=== PATIENT | female | born 1995 | race Hispanic/Latino ===

== ENCOUNTER 2017-12-11 07:53 | Emergency (ER) | payer OTHER, SELFPAY ==
--- NOTE | 2017-12-11 10:11 | RAD REPORT ---
EXAM DESCRIPTION: US - BREAST/AXILLA, LIMITED - 12/11/2017 8:48 am CLINICAL HISTORY: Pain, left nipple. COMPARISON: None. FINDINGS: Retroareolar mass is present measuring 2.1 x 1.3 cm. The mass is relatively well marginate d and largely hypoechoic. In this age group, benign etiology such as fibroadenoma is favored. However , six-month follow-up left breast sonography is recommended for continued surveillance. IMPRESSION: Solid 2.1 x 1.3 cm mass retroareolar left breast. Findings favor a benign etiology such as fibroadenoma in this age group. However, six-month follow-up left breast sonography is recommended for continued monitoring. BI-RAD: 3, probably benign. ResultCode: PB6 Category Diagnosis 0 = Incomplete: Needs Additional Imaging Evaluation, 1 = Negative, 2 = Benign, 3 = Probably Benign, 4 = Suspicious Abnormality, 5 = Highly Suspicious of Malignancy, 6 = Known Biop sy Proven Malignancy.
--- NOTE | 2017-12-11 10:21 | ER ---
Nurse's Notes [facility] Name: Koki Vargas Age: 22 yrs Sex: Female : 1995 Arrival Date: 12/11/2017 Time: 07:56 Bed 14 Private MD: None, None Diagnosis: Fibroadenosis of left breast Presentation: 12/11 08:10 Presenting complaint: Patient states: has had pain in left nipple since Mother's Day, iw over the weekend she noticed a lump in the same area and feels like a twisting, shocking sensation, feels like lump has gotten bigger, denies redness or discharge. Transition of care: patient was not received from another setting of care. Onset of symptoms was October 2017. Risk Assessment: Do you want to hurt yourself or someone else? Patient reports no desire to harm self or others. Initial Sepsis Screen: Does the patient meet any 2 criteria? No. Patient's initial sepsis screen is negative. Does the patient have a suspected source of infection? No. Patient's initial sepsis screen is negative. Care prior to arrival: None. 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 - Social history:: Smoking status: Patient/guardian denies using tobacco. - Ebola Screening: : Patient negative for fever greater than or equal to 101.5 degrees Fahrenheit, and additional compatible Ebola Virus Disease symptoms Patient denies exposure to infectious person Patient denies travel to an Ebola-affected area in the 21 days before illness onset No symptoms or risks identified at this time. - Family history:: not pertinent. - Hospitalizations: : No recent hospitalization is reported. Screenin:17 Abuse screen: Denies threats or abuse. Denies injuries from another. Nutritional iw screening: No deficits noted. Tuberculosis screening: No symptoms or risk factors identified. Fall Risk None identified. Assessment: 08:16 General: Appears in no apparent distress. Behavior is calm, cooperative. Pain: iw Complains of pain in left nipple Pain currently is 0 out of 10 on a pain scale. at worst was 4 out of 10 on a pain scale. Neuro: Level of Consciousness is awake, alert, obeys commands, Oriented to person, place, time, situation, Moves all extremities. Full function. Cardiovascular: Patient's skin is warm and dry. Respiratory: Respiratory effort is even, unlabored, Respiratory pattern is regular, symmetrical. GI: No signs and/or symptoms were reported involving the gastrointestinal system. Derm: Skin is pink, warm \T\ dry. normal. Musculoskeletal: Range of motion: intact in all extremities. 09:15 Reassessment: No changes from previously documented assessment. Patient and/or family jl7 updated on plan of care and expected duration. Pain level reassessed. Patient is alert, oriented x 3, equal unlabored respirations, skin warm/dry/pink. 10:15 Reassessment: Patient and/or family updated on plan of care and expected duration. Pain jl7 level reassessed. Patient is alert, oriented x 3, equal unlabored respirations, skin warm/dry/pink. Vital Signs: 08:13 BP 132 / 96; Pulse 70; Resp 16 S; Temp 98.2; Pulse Ox 100% on R/A; Weight 70.31 kg; iw Height 5 ft. 7 in. (170.18 cm); Pain 0/10; 10:15 BP 130 / 94; Pulse 71; Resp 16; Pulse Ox 100% ; jl7 08:13 Body Mass Index 24.28 (70.31 kg, 170.18 cm) ED Course: 07:56 Patient arrived in ED. mr 07:57 None, None is Private Physician. mr 08:13 Triage completed. iw 08:13 Arm band placed on. iw 08:15 Jessica Granda FNP is PHCP. kav 08:15 Jovi Mckinnon MD is Attending Physician. kav 08:30 Patient has correct armband on for positive identification. Bed in low position. Call jl7 light in reach. Side rails up X 1. 08:33 Jyothi Zamarripa, WILBER is Primary Nurse. jl7 08:35 Ultrasound completed. Other: AT BEDSIDE/PORTABLE. aa4 08:35 BREAST/AXILLA, LIMITED In Process Unspecified. EDMS 10:18 Jayce Gallo MD is Referral Physician. kav 10:31 No provider procedures requiring assistance completed. Patient did not have IV access jl7 during this emergency room visit. Administered Medications: No medications were administered Outcome: 10:20 Discharge ordered by MD. kav 10:31 Discharged to home ambulatory. jl7 10:31 Condition: stable 10:31 Discharge instructions given to patient, Instructed on discharge instructions, follow up and referral plans. Demonstrated understanding of instructions, follow-up care. 10:33 Patient left the ED. jl7 Signatures: Dispatcher [employer] EDDE Jessica Granda, SPRING INTERN SPRING INTERN Idalia Rodriguez mr Juliann Gudino, RN RN Donna Shelton aa4 Jyothi Zamarripa RN RN jl7 Corrections: (The following items were deleted from the chart) 08:14 08:13 3, Full Term 2, Premature 0, 1, Living 2, LMP 12/11/2017 [facility]
--- NOTE | 2017-12-11 10:21 | EDPHYS ---
Physician Documentation [facility] Name: Koki Vargas Age: 22 yrs Sex: Female : 1995 Arrival Date: 12/11/2017 Time: 07:56 Bed 14 Private MD: None, None ED Physician Jovi Mckinnon HPI: 12/11 08:15 This 22 yrs old Female presents to ER via Ambulatory with complaints of Breast kav Lump. 08:21 Onset: The symptoms/episode began/occurred 2 month(s) ago. Associated signs and kav symptoms: Pertinent positives: The patient does not have any pertinent positive signs or symptoms associated with pediatric illness. Pertinent negatives: "...no nipple discharge and very minimal left breast pain x 2 months". 08:23 The patient has not experienced similar symptoms in the past. The patient has not kav recently seen a physician. 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 - Social history:: Smoking status: Patient/guardian denies using tobacco. - Ebola Screening: : Patient negative for fever greater than or equal to 101.5 degrees Fahrenheit, and additional compatible Ebola Virus Disease symptoms Patient denies exposure to infectious person Patient denies travel to an Ebola-affected area in the 21 days before illness onset No symptoms or risks identified at this time. - Family history:: not pertinent. - Hospitalizations: : No recent hospitalization is reported. ROS: 08:23 Constitutional: Negative for fever, chills, and weight loss, Eyes: Negative for injury, kav pain, redness, and discharge, ENT: Negative for injury, pain, and discharge, Neck: Negative for injury, pain, and swelling, Cardiovascular: Negative for chest pain, palpitations, and edema, Respiratory: Negative for shortness of breath, cough, wheezing, and pleuritic chest pain, Abdomen/GI: Negative for abdominal pain, nausea, vomiting, diarrhea, and constipation, Back: Negative for injury and pain, : Negative for injury, bleeding, discharge, and swelling, MS/Extremity: Negative for injury and deformity, Neuro: Negative for headache, weakness, numbness, tingling, and seizure, Psych: Negative for depression, anxiety, suicide ideation, homicidal ideation, and hallucinations, Allergy/Immunology: Negative for hives, rash, and allergies, Endocrine: Negative for neck swelling, polydipsia, polyuria, polyphagia, and marked weight changes, Hematologic/Lymphatic: Negative for swollen nodes, abnormal bleeding, and unusual bruising. 08:23 Skin: Positive for singular mass 0.5 cm beneath left breast nipple. the mass is not fixed and is moveable. minimal pain with palpation. no nipple discharge and no peu d'orange on examination. she reports mass has been there x 2 months. Exam: 08:23 Constitutional: This is a well developed, well nourished patient who is awake, alert, kav and in no acute distress. Head/Face: Normocephalic, atraumatic. Eyes: Pupils equal round and reactive to light, extra-ocular motions intact. Lids and lashes normal. Conjunctiva and sclera are non-icteric and not injected. Cornea within normal limits. Periorbital areas with no swelling, redness, or edema. ENT: Nares patent. No nasal discharge, no septal abnormalities noted. Tympanic membranes are normal and external auditory canals are clear. Oropharynx with no redness, swelling, or masses, exudates, or evidence of obstruction, uvula midline. Mucous membranes moist. Neck: Trachea midline, no thyromegaly or masses palpated, and no cervical lymphadenopathy. Supple, full range of motion without nuchal rigidity, or vertebral point tenderness. No Meningismus. Chest/axilla: Normal chest wall appearance and motion. Nontender with no deformity. No lesions are appreciated. Cardiovascular: Regular rate and rhythm with a normal S1 and S2. No gallops, murmurs, or rubs. Normal PMI, no JVD. No pulse deficits. Respiratory: Lungs have equal breath sounds bilaterally, clear to auscultation and percussion. No rales, rhonchi or wheezes noted. No increased work of breathing, no retractions or nasal flaring. Abdomen/GI: Soft, non-tender, with normal bowel sounds. No distension or tympany. No guarding or rebound. No evidence of tenderness throughout. Back: No spinal tenderness. No costovertebral tenderness. Full range of motion. Female : Normal external genitalia. MS/ Extremity: Pulses equal, no cyanosis. Neurovascular intact. Full, normal range of motion. Neuro: Awake and alert, GCS 15, oriented to person, place, time, and situation. Cranial nerves II-XII grossly intact. Motor strength 5/5 in all extremities. Sensory grossly intact. Cerebellar exam normal. Normal gait. Psych: Awake, alert, with orientation to person, place and time. Behavior, mood, and affect are within normal limits. 08:23 Skin: lesion(s), noted, and can be described as tender, located on the left nipple. Vital Signs: 08:13 BP 132 / 96; Pulse 70; Resp 16 S; Temp 98.2; Pulse Ox 100% on R/A; Weight 70.31 kg; iw Height 5 ft. 7 in. (170.18 cm); Pain 0/10; 10:15 BP 130 / 94; Pulse 71; Resp 16; Pulse Ox 100% ; jl7 08:13 Body Mass Index 24.28 (70.31 kg, 170.18 cm) iw MDM: 08:15 Medical screening is not applicable. kav 12/11 08:25 Order name: BREAST/AXILLA, LIMITED [facility] 12/11 10:16 Interpretation: Abnormal: Retroareolar mass 2.1 x 1.3 cm. kav Administered Medications: No medications were administered Disposition: 15:15 Co-signature as Attending Physician, Jovi Mckinnon MD I agree with the assessment and kdr plan of care. Disposition: 12/11/17 10:20 Discharged to Home. Impression: Fibroadenosis of left breast. - Condition is Stable. - Discharge Instructions: Breast Self-Awareness, [id number], Fibrocystic Breast Changes, [id number]. - Medication Reconciliation Form, Thank You Letter, Antibiotic Education, Prescription Opioid Use form. - Follow up: Jayce Aldana MD; When: 6 months for f/u of retroareolar left breast mass. Follow up: Private Physician; When: As needed; Reason: Recheck today's complaints, Continuance of care, Re-evaluation by your physician. - Problem is new. - Symptoms are unchanged. - Notes: ensure 6 monthfollow-up with obgyn/dr. aldana and/or obgyn of your choice and/or pcp for f/u dx: retroaereolar mass 2.1 x 1.3 cm left breast Signatures: Dispatcher [employer] EDRI Jovi Mckinnon MD MD kdr Vern, Katherine, ESTATE CONSERVATOR ESTATE CONSERVATOR Juliann Estrada, RN RN iw Jyothi Zamarripa RN RN jl7 Corrections: (The following items were deleted from the chart) 08:25 08:21 Extrmty Nonvasular Limited+US.RAD.BRZ ordered. [facility] EDMS 10:33 10:20 12/11/2017 10:20 Discharged to Home. Impression: Fibroadenosis of left breast. jl7 Condition is Stable. Forms are Medication Reconciliation Form, Thank You Letter, Antibiotic Education, Prescription Opioid Use. Follow up: Jayce Aldana; When: 6 months for f/u of retroareolar left breast mass. Follow up: Private Physician; When: As needed; Reason: Recheck today's complaints, Continuance of care, Re-evaluation by your physician. Problem is new. Symptoms are unchanged. kav
== END 2017-12-11 10:33 | disposition home or self-care (01) ==
LOC: ER 07:53
DX: N60.22 Fibroadenosis of left breast (principal)
CPT/HCPCS: 76642; 99283